=== PATIENT | male | born 1950 | race Caucasian/White ===

== ENCOUNTER 2022-06-26 08:48 | Emergency (ER) | payer BC ==
[~2022-06-26] VITALS: Ht 172.7 cm; Wt 83.9 kg
[2022-06-26 09:20] VITALS: BP_SYST 134
--- NOTE | 2022-06-26 09:20 | NUR ---
Patient to ER bed H1 to gown for evaluation. Side rails up.
--- NOTE | 2022-06-26 09:28 | NUR ---
Pt brought in by self from home. Chief complaint left palm closed wound from animal bite (stray cat) incident on Friday. Pt states urgent care prescribed Amoxicillin and noted further evaluation. Pt has redness radiating up radial of left anterior. Pt denies Fever chills, denies itchiness and pain.
--- NOTE | 2022-06-26 09:33 | NUR ---
ER Dr. DIA at bedside examining patient.
--- NOTE | 2022-06-26 09:48 | NUR ---
Visual acuity exam completed.
[2022-06-26 10:28] LABS: BASOPHILS # (AUTO) 0.1 K/uL (0.0-0.2); BASOPHILS % (AUTO) 0.7 % (0.0-2.0); EOSINOPHILS # (AUTO) 0.1 K/uL (0.0-0.4); EOSINOPHILS % (AUTO) 1.6 % (0.0-4.0); HEMATOCRIT 45.6 % (36-54); HEMOGLOBIN 15.4 g/dL (14.0-18.0); LYMPHOCYTES # (AUTO) 1.4 K/uL (1.0-5.5); LYMPHOCYTES % (AUTO) 17.4 % (20.5-51.5); MEAN CORPUSCULAR HEMOGLOBIN 30 pg (27-31); MEAN CORPUSCULAR HGB CONC 34 % (32-36); MEAN CORPUSCULAR VOLUME 89 fL (79.0-98.0); MONOCYTES # (AUTO) 0.7 K/uL (0.0-1.0); MONOCYTES % (AUTO) 8.3 % (1.7-9.3); NEUTROPHILS # (AUTO) 5.7 K/uL (1.8-7.7); PLATELET COUNT (AUTO) 246 K/uL (130-430); RED BLOOD CELL COUNT(AUTO) 5.13 MIL/uL (4.2-6.2); RED CELL DISTRIBUTION WIDTH 13.8 % (9.0-15.0); WHITE BLOOD COUNT (AUTO) 7.9 K/uL (4.8-10.8)
[2022-06-26 10:43] LABS: ANION GAP 10 (5-15); CALCIUM 8.6 mg/dL (8.4-11.0); CHLORIDE 105 mmol/L (98-107); CREATININE 1.28 mg/dL (0.55-1.30); UREA NITROGEN, BLOOD 27 mg/dL (8-21)
[2022-06-26 10:47] LABS: GLUCOSE 133 mg/dL (70-99)
[2022-06-26 10:53] LABS: ALANINE AMINOTRANSFERASE 16 U/L (12-78); ALBUMIN 3.3 g/dL (3.4-4.8); ASPARTATE AMINOTRANSFERASE 16 U/L (10-37); C-REACTIVE PROTEIN QUANT 2.3 mg/dL (0-0.5); TOTAL BILIRUBIN 0.4 mg/dL (0.0-1.0)
--- NOTE | 2022-06-26 11:13 | NUR ---
0.5ml of Boostrix given IM in LD per DR Yung order. Patient approved of vaccine prior to administration. Patient denied allergies. Patient tolerated injection well. VIS given and reviewed prior to administration.
[2022-06-26] MEDS ORDERED: DIPHTH,PERTUSS(ACELL),TET VAC 0.5 ML VIAL (Tdap) I.M. ONE (11:15)
--- NOTE | 2022-06-26 11:15 | NUR ---
Patient given written and verbal discharge instructions and verbalizes understanding. ER MD Yung discussed with patient the results and treatment provided. Patient in stable condition. ID arm band removed. Opportunity for questions provided and answered. Patient a&ox4, stable. Left walking to personal vehicle.
== END 2022-06-26 11:15 | disposition home or self-care (01) ==
LOC: SED 08:48
DX: S41.132A Puncture wound without foreign body of left upper arm, initial encounter (principal); I10 Essential (primary) hypertension; Z79.899 Other long term (current) drug therapy; W55.01XA Bitten by cat, initial encounter; Y93.89 Activity, other specified; Y92.89 Other specified places as the place of occurrence of the external cause; Y99.8 Other external cause status
CPT/HCPCS: 36415; 80053; 83605; 85025; 86140; 90715; 99283